=== PATIENT | male | born 1985 | race Caucasian/White ===

== ENCOUNTER 2017-08-31 16:03 | Emergency (ER) | payer SELFPAY ==
[~2017-08-31] VITALS: Ht 175.3 cm; Wt 63.6 kg
[2017-08-31 17:06] VITALS: BP 133/86; Ht 175.3 cm; Wt 63.6 kg
== END 2017-08-31 18:33 | disposition left against medical advice (07) ==
LOC: D.ER 16:03
DX: R11.10 Vomiting, unspecified (principal); R19.7 Diarrhea, unspecified